=== PATIENT | female | born 1955 | race Caucasian/White ===

== ENCOUNTER 2020-12-29 15:35 | Emergency (ER) | payer MEDICARE, OTHER, SELFPAY ==
[2020-12-29] VITALS (10 sets, daily range): BP systolic 86–117; BP diastolic 53–78; PULSE 72–85; RESP 16–38; TEMP 36.5; O2SAT 99–100; BMI 30.2
--- NOTE | 2020-12-29 15:35 | ED.GENADULT ---
HPI - General Adult General Chief complaint: Syncope Stated complaint: dizzy Time Seen by Provider: 12/29/20 15:40 History of Present Illness HPI narrative: 65-year-old woman with history of hypertension and osteoporosis was in her usual state of excellent health getting ready to physically moved to look on her this afternoon having friends over at home when she sat down to have meal. She notes that she has been a bit tired today but has no other complaints specifically no fevers, cough, chills. No vomiting, no nausea, no diarrhea. As she sat she became acutely dizzy than profusely diaphoresis. She put her head between her legs with a near syncopal episode and then was helped to the floor and medics were called. On arrival her initial blood pressure was 70 systolic. She complains of no chest pain, orthopnea, dyspnea, palpitations, headaches, other neurologic symptoms. Related Data Home Medications Medication Instructions Recorded Confirmed lisinopril 10 1 tab PO DAILY 12/29/20 12/29/20 mg-hydrochlorothiazide 12.5 mg tablet Allergies Allergy/AdvReac Type Severity Reaction Status Date / Time Penicillins Allergy Mild Rash Verified 12/29/20 15:47 Sulfa (Sulfonamide Allergy Mild Rash Verified 12/29/20 15:47 Antibiotics) Review of Systems Review of Systems Narrative: Remainder of complete review of systems is otherwise unremarkable except for that included in the HPI. Patient History Medical History (Updated 12/29/20 @ 17:28 by Brenda Lares MD) Hypertension Osteoporosis Social History Smoking Status: Never smoker Exam Narrative Exam Narrative: General: Healthy appearing, in no acute distress. Able to give a complete and coherent history. Well-nourished well-developed HEENT: Moist mucous membranes, normal sclera with reactive pupils, Neck: No JVD, supple Respiratory: Lungs are clear to auscultation, no wheezing no rales no rhonchi. Full and symmetrical air movement Cardiac: Regular rate and rhythm no murmurs no bruits Abdomen: Soft, nontender, good bowel tones, no flank pain Skin: Warm and dry, no rashes Neurologic: Grossly neurologically intact with no obvious asymmetries or abnormalities Extremities: No trauma, well perfused Psych: Cooperative, appropriate insight and affect Initial Vital Signs Initial Vital Signs: Vital Signs Temperature 97.7 F 08/28/21 15:36 Pulse Rate 82 12/29/20 15:36 Respiratory Rate 16 12/29/20 15:36 Blood Pressure 86/53 L 12/29/20 15:36 Pulse Oximetry 100 12/29/20 15:36 Course Orders Ordered: ED Orders 12/29/20 15:37 Complete Blood Count AUTO DIFF Stat Comprehensive Metabolic Panel Stat Magnesium Stat Troponin I Stat 12/29/20 15:43 COVID19 -Nasal swab/Pre-Proc Stat 12/29/20 15:59 XR chest 1V Stat EKG-12 Lead Stat Sodium Chloride (Normal Saline 0.9%) 1,000 mls @ 1,000 mls/hr IV BOLUS ONE Stop: 12/29/20 17:41 Last Admin: 12/29/20 16:46 Dose: 1,000 mls/hr Documented by: OZIEL Discontinued Medications Sodium Chloride (Normal Saline 0.9%) 1,000 mls @ 2,000 mls/hr IV BOLUS ONE Stop: 12/29/20 16:27 Last Infusion: 12/29/20 16:41 Dose: 0 mls/hr Documented by: Admin: 12/29/20 16:08 Dose: 2,000 mls/hr Documented by: DASHAWNOR Vital Signs Vital signs: Vital Signs - 8 hr 12/29/20 15:36 12/29/20 15:46 12/29/20 16:10 Temperature 97.7 F Pulse Rate 82 72 Respiratory Rate 16 16 Blood Pressure 86/53 L 96/53 L 92/61 Pulse Oximetry 100 100 12/29/20 16:23 12/29/20 16:30 12/29/20 16:32 Temperature Pulse Rate 73 74 78 Respiratory Rate 17 20 19 Blood Pressure 98/58 L Pulse Oximetry 99 100 99 12/29/20 16:33 Temperature Pulse Rate Respiratory Rate Blood Pressure 98/58 L Pulse Oximetry Medical Decision Making Lab Data Result diagrams: 12/29/20 15:37 12/29/20 15:37 Labs: Lab Results 12/29/20 12/29/20 12/29/20 Range/Units 15:37 15:37 15:43 WBC 6.6 (4.5-11.0) X10^3/uL RBC 4.24 (4.0-5.2) X10^6/uL Hgb 12.9 (12.0-16.0) g/dL Hct 39.0 (36-46) % MCV 92.0 (80-100) fL MCH 30.4 (26-34) PG MCHC 33.1 (30-36) % RDW 13.3 (11.6-14.8) % Plt Count 228 (150-400) X10^3/uL Neut % (Auto) 62.5 (50-75) % Lymph % (Auto) 29.4 (25-40) % [facility] % (Auto) 5.7 (3-14) % Eos % (Auto) 1.6 L (2-4) % Baso % (Auto) 0.8 (0-2) % Neut # (Auto) 4200 (2325-5315) /uL Lymph # (Auto) 2000 (9193-9039) /uL [facility] # (Auto) 400 (0-900) /uL Eos # (Auto) 100 (0-450) /uL Baso # (Auto) 100 (0-100) /uL Sodium 136 L (137-145) mmol/L Potassium 3.7 (3.4-5.1) mmol/L Chloride 103 (98-107) mmol/L Carbon Dioxide 26 (22-32) mmol/L BUN 19 H (7-17) mg/dL Creatinine 0.91 (0.52-1.04) mg/dL Estimated GFR > 60.0 (>60) mL/min BUN/Creatinine Ratio 20.9 (6-22) Glucose 140 H (80-110) mg/dL Calcium 9.6 (8.4-10.2) mg/dL Magnesium 2.1 (1.6-2.3) mg/dL Total Bilirubin 0.4 (0.2-1.3) mg/dL AST 34 (14-36) IU/L ALT 25 (<35) IU/L Alkaline Phosphatase 56 (38-126) U/L Troponin I < 0.012 (0.01-0.034) ng/mL Total Protein 6.9 (6.3-8.2) g/dL Albumin 4.1 (3.5-5.0) g/dL Globulin 2.8 (1.7-4.1) g/dL Albumin/Globulin Ratio 1.5 (1.0-2.8) SARS-CoV-2 (PCR) Negative (Negative) Imaging Data Chest x-ray: Radiologist's Impression: FINDINGS: Surgical changes and devices: None. Lungs and pleura: Lungs are clear. No pleural effusions or pneumothorax. Mediastinum: Mediastinal contours appear normal. Heart size is normal. Bones and chest wall: No suspicious bony lesions. Overlying soft tissues appear unremarkable. IMPRESSION: No acute cardiopulmonary process. Dictated by: Freddy East M.D. on 12/29/2020 at 15:21 ECG Data Interpretation: Sinus rhythm at a rate of 70 normal intervals, normal axis no acute ischemic changes MDM Narrative Medical decision making narrative: 65-year-old woman with a near syncopal episode and notable orthostatic hypotension on arrival. No evidence of significant extrinsic fluid loss or blood loss. No evidence of infection, congestive heart failure or acute coronary syndrome. She is feeling remarkably better after 2 L of fluid and is no longer orthostatic. Best explanation at this point is significant dehydration resolving nicely with fluid replacement. She is quite thirsty and hungry at this point and is looking forward to moving into her new home in [facility]. She is safe for home discharge at this time Discharge Plan Departure Patient Disposition: Home Clinical Impression: Dehydration, Orthostatic hypotension Instructions: DI for Dehydration -- Adult Activity Restrictions/Additional Instructions: Thank you for coming in today Your workup was very reassuring with no evidence of acute coronary syndrome, stroke, infection, kidney abnormalities, significant blood loss or other explanations for why you might have had such low blood pressure today. I suspect a significant portion of that is dehydration. I am going to suggest that you try to make a point of keeping herself hydrated with water. I am also going to suggest that you check your blood pressures at home. If your blood pressure in the morning is below 120/70, please do not take the lisinopril hydrochlorothiazide. Would ask that you follow-up with your primary care physician in the next 2-3 weeks and take with you a list of blood pressures so you can decide if you need to continue with the current dose of the lisinopril hydrochlorothiazide. I hope you love you new home in [facility]. Welcome to the area. Prescriptions: No Action lisinopril-hydrochlorothiazide 10-12.5 mg Tablet 1 tab PO DAILY RF: 0
--- NOTE | 2020-12-29 15:59 | DI.RAD.S_ITS ---
PROCEDURE: XR CHEST 1V INDICATIONS: near syncope TECHNIQUE: One view of the chest was acquired. COMPARISON: None. FINDINGS: Surgical changes and devices: None. Lungs and pleura: Lungs are clear. No pleural effusions or pneumothorax. Mediastinum: Mediastinal contours appear normal. Heart size is normal. Bones and chest wall: No suspicious bony lesions. Overlying soft tissues appear unremarkable. IMPRESSION: No acute cardiopulmonary process. Dictated by: Freddy East M.D. on 12/29/2020 at 15:21 Approved by: Freddy East M.D. on 12/29/2020 at 15:25
[2020-12-29] MEDS: SODIUM CHLORIDE 0.9% 1,000 ML 2000 ML IV (16:08)
[2020-12-29 16:26] LABS: COVID19 -Nasal RAPID Negative (Negative)
[2020-12-29 16:27] LABS: Add Manual Diff / Slide Review NO; Basophils Absolute Auto 100 /uL (0-100); Basophils Percent Auto 0.8 % (0-2); Eosinophils Absolute Auto 100 /uL (0-450); Eosinophils Percent Auto 1.6 % (2-4); Hemoglobin 12.9 g/dL (12.0-16.0); Lymphocytes Absolute Auto 2000 /uL (1100-4500); Lymphocytes Percent Auto 29.4 % (25-40); Mean Corpuscular HGB Conc 33.1 % (30-36); Mean Corpuscular Hemoglobin 30.4 PG (26-34); Monocytes Absolute Auto 400 /uL (0-900); Monocytes Percent Auto 5.7 % (3-14); Neutrophils Absolute Auto 4200 /uL (1500-7000); Neutrophils Percent Auto 62.5 % (50-75); Platelet Count 228 X10^3/uL (150-400); Red Blood Cell Count 4.24 X10^6/uL (4.0-5.2); Red Cell Distribution Width 13.3 % (11.6-14.8); White Blood Cell Count 6.6 X10^3/uL (4.5-11.0)
[2020-12-29 16:31] LABS: Alanine Aminotransferase 25 IU/L (<35); Albumin 4.1 g/dL (3.5-5.0); Albumin Globulin Ratio 1.5 (1.0-2.8); Alkaline Phosphatase 56 U/L (38-126); Aspartate Aminotransferase 34 IU/L (14-36); BUN Creatinine Ratio 20.9 (6-22); Bilirubin Total 0.4 mg/dL (0.2-1.3); Blood Urea Nitrogen 19 mg/dL (7-17); Calcium 9.6 mg/dL (8.4-10.2); Carbon Dioxide 26 mmol/L (22-32); Chloride 103 mmol/L (98-107); Estimated Glomerular Filt Rate > 60.0 mL/min (>60); Globulin 2.8 g/dL (1.7-4.1); Glucose 140 mg/dL (80-110); HEMOLYSIS < 15 (0-50); Magnesium 2.1 mg/dL (1.6-2.3); Potassium 3.7 mmol/L (3.4-5.1); Sodium 136 mmol/L (137-145); Total Protein 6.9 g/dL (6.3-8.2)
[2020-12-29 16:42] LABS: Troponin I < 0.012 ng/mL (0.01-0.034)
[2020-12-29] MEDS: SODIUM CHLORIDE 0.9% 1,000 ML 1000 ML IV (16:46)
[2020-12-29 18:01] LABS: Bacteria Urine None Seen; RBC Urine None Seen (0-5/HPF)
[2020-12-29 18:19] LABS: Culture Indicated Urine Specimen Cultured; Hyaline Casts Urine 1-5/LPF; Renal Epithelial Cells Urine 0-1/HPF (0-1/HPF); Squamous Epithelial Cell Urine 0-1 /HPF (0-5/HPF); WBC Urine 5-10/HPF (0-5/HPF)
== END 2020-12-29 17:47 | disposition home or self-care (01) ==
PROVIDERS: Emergency Provider Emergency Medicine
DX: I95.1 Orthostatic hypotension (principal); E86.0 Dehydration; R42 Dizziness and giddiness; Z20.822 Contact with and (suspected) exposure to COVID-19
CPT/HCPCS: 36415; 71045; 80053; 81003; 81015; 83735; 84484; 85025; 87086; 87635; 93005; 93010; 96360; 96361; 99284; C9803